=== PATIENT | female | born 1995 | race African-American/Black ===

== ENCOUNTER 2016-09-14 14:49 | Emergency (ER) | payer OTHER ==
[~2016-09-14] VITALS: Ht 165.1 cm; Wt 68.5 kg
[2016-09-14 14:55] VITALS: TEMP 37; Ht 165.1 cm; Wt 68.5 kg
[2016-09-14] MEDS ORDERED: FAMOTIDINE 20MG/102 ML D5W IV STA (15:04)
[2016-09-14] MEDS ORDERED: BCPILLS PO (15:10)
[2016-09-14] MEDS ORDERED: EPP3/2 IM (16:19)
--- NOTE | 2016-09-14 16:19 | EMERGENCY ROOM VISIT NOTE ---
ED Visit Note First contact with patient: 14:58 CHIEF COMPLAINT: Allergic reaction HISTORY OF PRESENT ILLNESS: This 20-year-old female patient presents to the emergency department via ALS from [facility]. The patient reports that this morning, she had [employer] and then took 2 Aleve for headache. She reports that after that, she developed facial swelling, a feeling of tingling in her tongue and difficulty breathing. She went to [facility], should wear she was given an EpiPen, 50 mg Benadryl and 125 mg Solu-Medrol. She states that her symptoms have significantly improved at this time. She denies any history of allergic reactions. She does report that her mother has a seafood allergy. At this time, she denies any facial swelling, shortness of breath, difficulty swallowing, nausea, vomiting or abdominal pain. REVIEW OF SYSTEMS: A review of systems was performed with positives and pertinent negatives listed in the history of present illness. All other systems were reviewed and are negative. ALLERGIES: No known drug allergies MEDICATIONS: control pills PMH: No significant past medical history. SOCIAL HISTORY: The patient is a [employer] student and lives with roommates. PHYSICAL EXAM:VITALS: Vitals are noted on the nurse's note and reviewed by myself. Vital signs stable. GENERAL: This is a 20-year-old female, in no acute distress, nondiaphoretic, well-developed well-nourished. THROAT: No pharyngeal edema or injection, no exudates or tonsillar hypertrophy. Airway patent. LUNGS: Clear to auscultation and breath sounds equal, no wheezes, rales, or rhonchi. EYES: PERRLA, EOMI, no discharge or injection. NEUROLOGICAL: Alert and oriented to person, place, and time. Normal sensation to light and sharp touch. HEART: Regular rate without murmurs, ectopy, gallops, or rubs. SKIN: No rashes. The lips are not swollen. There is no periorbital swelling. EMERGENCY DEPARTMENT COURSE: I examined the patient. She was given 20 mg famotidine IV and 1 L normal saline solution. The patient's symptoms had completely resolved at the time of her arrival. I do suspect she had an allergic reaction, although the cause is unclear. She was given a prescription for EpiPen for future reactions. She was instructed to take Benadryl and Zantac to avoid rebound reaction. She will follow-up with [facility] as needed. She verbalized understanding and was discharged home in good condition. The patient's case was reviewed with Dr. Riley, ED attending physician, who agreed with my assessment and treatment plan. DIAGNOSIS: Allergic reaction Current/Historical Medications Scheduled Control Pills ( Control Pills), 1 TAB PO HS Epinephrine (Epipen), 0.3 MG IM UD Allergies Coded Allergies: No Known Allergies (Unverified , 09/14/16) Vital Signs Date Time Temp Pulse Resp B/P Pulse Ox O2 Delivery O2 Flow Rate FiO2 09/14/16 16:40 91 17 130/71 95 09/14/16 14:55 37.0 90 17 137/78 97 Room Air 09/14/16 14:55 Room Air Medications Administered Medications (Trade) Dose Ordered Sig/Rosemarie Route Start Time Stop Time Status Last Admin Dose Admin Famotidine (Pepcid 20mg/100 ml) 20 mg ONE STAT IV 09/14/16 15:04 09/14/16 15:05 DC 09/14/16 15:11 20 MG Departure Information Impression Primary Impression: Allergic reaction Dispostion Home / Self-Care Condition GOOD Prescriptions Epinephrine (EPIPEN) 0.3 Mg/0.3 Ml Inj 0.3 MG IM UD, #1 BOX 2 Refills Prov: Magy Alfaro ., EVER 09/14/16 Referrals No Doctor, Assigned (PCP) Patient Instructions [facility] Additional Instructions You have been treated in the Emergency Department for an Allergic Reaction. You have been treated and monitored in the Emergency Department appropriately. You should take Benadryl (diphenhydramine) 25 mg orally every 4-6 hours for the next 5-7 days. This medication is [id number] and you will NOT need a prescription to purchase this at your local pharmacy. You should continue taking the Benadryl for the COMPLETION of the 5-7 days. This is to prevent a rebound allergic reaction in the event that allergens are still present in your system. You should take Zantac (ranitidine) 75 mg orally once daily for the next 7 days. This medication is [id number] and you will NOT need a prescription to purchase this at your local pharmacy. You should continue taking the Zantac for the COMPLETION of the 7 days. This is to prevent a rebound allergic reaction in the event that allergens are still present in your system. You have been prescribed an EpiPen to be used in the case of an Emergency. Please read the packet you have been given and ask your pharmacist for instructions on proper administration. If you begin to experience the symptoms that brought you to the Emergency Department today, you should give yourself the injection and then report IMMEDIATELY to the Emergency Department for further evaluation and treatment. As with every Emergency Department visit, you should follow-up with your primary care provider in 2-3 days for reevaluation. Return to the Emergency Department if your current symptoms worsen despite treatment course outlined above, or if you develop any of the following symptoms : wheezing, tongue or face swelling, tightness in your throat, shortness of breath, or fainting. Problem Qualifiers Primary Impression: Allergic reaction Encounter type: initial encounter Qualified Codes: T78.40XA - Allergy, unspecified, initial encounter
[2016-09-14 16:40] VITALS: BP 130/71; PULSE 91; O2SAT 95
== END 2016-09-14 16:41 | disposition home or self-care (01) ==
LOC: C.EDC 14:53
DX: T78.40XA Allergy, unspecified, initial encounter (principal); X58.XXXA Exposure to other specified factors, initial encounter; Z79.3 Long term (current) use of hormonal contraceptives